=== PATIENT | male | born 1985 | race Caucasian/White ===

== ENCOUNTER 2017-08-13 19:04 | Emergency (ER) | payer SELFPAY ==
[~2017-08-13] VITALS: Ht 167.6 cm; Wt 61.2 kg
[2017-08-13 19:20] VITALS: BP 121/80
--- NOTE | 2017-08-13 19:55 | NUR ---
urine sample collected.
--- NOTE | 2017-08-13 20:19 | NUR ---
Teresa burk in [facility] - 08/13/17 at 2020 by [place] jana tech at bedside.
[2017-08-13 20:41] LABS: APPEARANCE,URINE Clear (CLEAR); BILIRUBIN,URINE SMALL (NEGATIVE); BLOOD, URINE Negative Ery/uL (NEGATIVE); COLOR,URINE Yellow (YELLOW); KETONES,URINE Trace (NEGATIVE); LEUKOCYTE ESTERASE ,URINE Negative (NEGATIVE); NITRITE, URINE Negative (NEGATIVE); PROTEIN,URINE Trace mg/dl (NEGATIVE); UGLUCOSE Negative (NEGATIVE); UROBILINOGEN,URINE 0.2 EU/dL (0.2)
[2017-08-13 20:59] LABS: BACTERIA,URINE Rare /HPF (None Seen); MUCUS,URINE Few /LPF (None Seen); RBC,URINE NONE SEEN /HPF (0-2); SQUAMOUS EPITHELIAL CELL,UR Few /HPF (None Seen); URINE AMORPHOUS URATE Few /HPF (None Seen); WBC,URINE 0-2 /HPF (0-3)
== END 2017-08-13 23:22 | disposition home or self-care (01) ==
LOC: ER 19:07
DX: N50.9 Disorder of male genital organs, unspecified (principal); Z98.890 Other specified postprocedural states
CPT/HCPCS: 76870-TC; 81000-TC; A4606; Z7610